=== PATIENT | female | born 1995 | race Caucasian/White ===

== ENCOUNTER 2018-04-30 00:28 | Emergency (ER) | payer MEDICAID ==
[~2018-04-30] VITALS: Ht 160 cm; Wt 43.1 kg
[2018-04-30 00:28] VITALS: BP 134/93
--- NOTE | 2018-04-30 00:28 | NUR ---
PATIENT BIB BLS TO ER BED 2.
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
[2018-04-30 01:08] VITALS: BP 134/93
--- NOTE | 2018-04-30 01:08 | NUR ---
Patient discharged with v/s stable. Written and verbal after care instructions given and explained. Patient verbalized understanding. Ambulatory with steady gait. All questions addressed prior to discharge. Advised to follow up with PMD.
== END 2018-04-30 01:08 | disposition home or self-care (01) ==
LOC: MED 00:28
DX: S01.412A Laceration without foreign body of left cheek and temporomandibular area, initial encounter (principal); W22.8XXA Striking against or struck by other objects, initial encounter; Y93.89 Activity, other specified; Y92.89 Other specified places as the place of occurrence of the external cause; Y99.8 Other external cause status
CPT/HCPCS: 90471; 90715; 99283

== ENCOUNTER 2019-02-19 12:01 | Emergency (ER) | payer MEDICAID ==
[~2019-02-19] VITALS: Ht 157.5 cm; Wt 49.0 kg
[2019-02-19 12:08] VITALS: BP 127/68
[2019-02-19] MEDS ORDERED: AMOXICILLIN 500 MG CAP PO ONE (14:10)
[2019-02-19 14:26] VITALS: BP 121/60
== END 2019-02-19 14:26 | disposition home or self-care (01) ==
LOC: MED 12:01
DX: J02.0 Streptococcal pharyngitis (principal); R42 Dizziness and giddiness; F17.200 Nicotine dependence, unspecified, uncomplicated
CPT/HCPCS: 87081; 99283

== ENCOUNTER 2019-06-19 07:26 | Emergency (ER) | payer MEDICAID ==
[~2019-06-19] VITALS: Ht 163.8 cm; Wt 45.1 kg
[2019-06-19 07:29] VITALS: BP 129/82
--- NOTE | 2019-06-19 07:32 | NUR ---
PT TO BED 7 WITH STEADY GAIT
--- NOTE | 2019-06-19 07:57 | NUR ---
24Y/F PRESENTS TO ED WITH C/O UPPER LEFT BACK PAIN 10/10 X 4 DAY, DENIES INJURY. PT WAS SEEN ON TUESDAY FOR URI SX AND WAS GIVEN A BLOOD TRANSFUSION. PT REPORTS FEVER 101.2 X 2 DAY, BODY ACHE, NASAL CONGESTION, CHEST CONGESION, DENIES UTI SX. PT REPORTS L EYE REDNESS X 4 DAY C ITCHINESS. HX- ANEMIA NKDA
[2019-06-19] MEDS ORDERED: IBUPROFEN 800 MG TAB PO ONE (08:30)
--- NOTE | 2019-06-19 08:38 | NUR ---
PT SITTING UP IN BED, GIVEN WATER AND CRACKERS TO EAT BEFORE PO MOTRIN ADMINISTRATION.
--- NOTE | 2019-06-19 08:58 | NUR ---
NADR, PAIN DECREASED TO 7/10.
--- NOTE | 2019-06-19 09:35 | NUR ---
INFLUENZA SWAB COLLECTED AND WALKED TO LAB
[2019-06-19 11:40] VITALS: BP 129/82
--- NOTE | 2019-06-19 11:41 | NUR ---
Patient discharged with v/s stable. Written and verbal after care instructions given and explained. Patient alert, oriented and verbalized understanding of instructions. Ambulatory with steady gait. All questions addressed prior to discharge. ID band removed. Patient advised to follow up with PMD. Rx of MOTRIN/PROMETHAZINE DM given. Patient educated on indication of medication including possible reaction and side effects. Opportunity to ask questions provided and answered.
== END 2019-06-19 11:41 | disposition home or self-care (01) ==
LOC: MED 07:26
DX: J06.9 Acute upper respiratory infection, unspecified (principal); R03.0 Elevated blood-pressure reading, without diagnosis of hypertension; H10.9 Unspecified conjunctivitis
CPT/HCPCS: 81002; 81025; 87804; 99283

== ENCOUNTER 2020-01-24 16:37 | Emergency (ER) | payer MEDICAID ==
[~2020-01-24] VITALS: Ht 162.6 cm; Wt 44.0 kg
[2020-01-24 16:46] VITALS: BP 128/93
[2020-01-24] MEDS ORDERED: KETOROLAC 30 MG/ML VIAL IM ONE (17:00)
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
[2020-01-24 17:25] VITALS: BP 128/93
--- NOTE | 2020-01-24 17:25 | NUR ---
Patient discharged with v/s stable. Written and verbal after care instructions about cellulitis given and explained. Patient alert, oriented and verbalized understanding of instructions. Ambulatory with steady gait. All questions addressed prior to discharge. ID band removed. Patient advised to follow up with PMD. Rx of naproxen and keflex given. Patient educated on indication of medication including possible reaction and side effects. Opportunity to ask questions provided and answered.
== END 2020-01-24 17:25 | disposition home or self-care (01) ==
LOC: MED 16:37
DX: K12.2 Cellulitis and abscess of mouth (principal); Z48.00 Encounter for change or removal of nonsurgical wound dressing
CPT/HCPCS: 96372; 99283; J1885

== ENCOUNTER 2021-10-24 14:35 | Emergency (ER) | payer MEDICAID ==
[~2021-10-24] VITALS: Ht 162.6 cm; Wt 68.0 kg
[2021-10-24 14:45] VITALS: BP 149/89
[2021-10-24] MEDS ORDERED: ONDANSETRON 4 MG ODT PO ONE (14:50)
--- NOTE | 2021-10-24 14:50 | NUR ---
PATIENT LEFT WITHOUT BEING SEEN BY DR. ARMAS. NO FURTHER CARE PROVIDED FOR PATIENT.
--- NOTE | 2021-10-24 14:50 | NUR ---
PT STATED "IM NOT GOING TO STAY HERE IF YOURE NOT GOING TO GIVE ME A BED".
== END 2021-10-24 14:50 | disposition left against medical advice (07) ==
LOC: MED 14:35
DX: R11.10 Vomiting, unspecified (principal); Z53.21 Procedure and treatment not carried out due to patient leaving prior to being seen by health care provider